=== PATIENT | female | born 1985 | race Two or more races ===

== ENCOUNTER 2017-01-14 14:42 | Emergency (ER) | payer OTHER ==
[~2017-01-14] VITALS: Ht 162.6 cm; Wt 59.5 kg
[~2017-01-14 14:42] MED LIST: ACET500C5 PO; CEPH500C PO; IBUP-1542 PO
[2017-01-14 14:48] VITALS: Ht 162.6 cm; Wt 59.5 kg
--- NOTE | 2017-01-14 16:24 | RADRPT ---
PROCEDURE: XR Lumbar Spine. CLINICAL INDICATION: Low back pain. TECHNIQUE: Two views of the lumbar spine are available for review COMPARISON: None available FINDINGS: The vertebral body heights are preserved. There are no acute fractures. There is minimal right con vex curvature of the thoracolumbar spine. There are L5 pars defects with minimal anterolisthesis at L5-S1. There is mild disk space narrowing at L4-L5. The bilateral sacroiliac joints and sacral arcuate lines are intact. RPTAT: EE IMPRESSION: 1. L5 pars defects with minimal anterolisthesis at L5-S1. 2. Mild degenerative disk disease at L4-L5. .Arleen Servin MD, Date Time Electronically viewed and signed by .Arleen Servin MD, on 01/14/2017 16:28 .T/
[2017-01-14] MEDS ORDERED: NAPR-260 PO (16:53)
--- NOTE | 2017-01-14 17:32 | ERD ---
ER Documentation Chief Complaint Date/Time DATE: 01/14/17 TIME: 17:18 Chief Complaint LOWER BACK PAIN HPI 31-year-old female patient with no significant past medical history presents to the ED complaining of lower back pain that started intermittently for 6 months. Reports that it is an achy type of pain and rates it a 5 out of 10. States that laying on her back and moving makes her pain worse. Denies any chest pain , shortness of breath, wheezing, abdominal pain, nausea, vomiting, flank pain, dysuria, hematuria. States that her last menses was sometime last week. ROS All systems reviewed and are negative except as per history of present illness. Medications Home Meds Active Scripts Naproxen* (Naprosyn*) 500 Mg Tablet, 500 MG PO BID Y for PAIN AND/OR INFLAMMATION, #30 TAB Prov:PERCY SPENCE PA-C 01/14/17 Ibuprofen* (Motrin*) 600 Mg Tab, 600 MG PO Q6, #30 TAB Prov:ANIBAL ANAYA 10/05/15 Cephalexin* (Cephalexin*) 500 Mg Capsule, 500 MG PO Q6 for 7 Days, CAP Prov:NAYLA BROWN NP 06/08/15 Acetaminophen* (Tylophen*) 500 Mg Capsule, 1 CAP PO Q6H Y for PAIN AND OR ELEVATED TEMP, #20 CAP Prov:NAYLA BROWN HEEL PAINTER 06/08/15 Reported Medications [none] Unknown Strength No Conflict Check 06/08/15 Allergies Allergies: Coded Allergies: No Known Allergy (Unverified , 06/08/15) PMhx/Soc History of Surgery: No Anesthesia Reaction: No Hx Neurological Disorder: No Hx Respiratory Disorders: No Hx Cardiac Disorders: No Hx Psychiatric Problems: No Hx Miscellaneous Medical Probl: No Hx Alcohol Use: No Hx Substance Use: No Hx Tobacco Use: No Smoking Status: Never smoker Physical Exam Vitals Vital Signs Date Time Temp Pulse Resp B/P Pulse Ox O2 Delivery O2 Flow Rate FiO2 01/14/17 14:48 98.4 59 18 105/55 99 Physical Exam Const: [id number], well-nourished. In no acute distress. Head: Atraumatic, normocephalic Eyes: Normal Conjunctiva without injection. No purulent discharge. ENT: Normal external ear, nose. Moist oropharynx without tonsillar exudates. Non -erythematous pharynx. Uvula midline. No drooling. No trismus. Neck: No cervical midline tenderness. Full range of motion. No meningismus. No cervical lymphadenopathy. No JVD. Resp: Clear to auscultation bilaterally. No wheezing, rhonchi, rales, or crackles. No accessory muscle use. No retractions. Cardio: Regular rate and rhythm. No murmurs, rubs or gallops. Abd: Soft, nontender, non distended. Normal bowel sounds. No palpable masses. No rebound tenderness. No guarding. Negative McBurney's point. Negative psoas sign. Negative obturator sign. : See exam in MDM. Skin: No petechiae or rashes Back: Tenderness to palpation of the L5 vertebrae. No CVA tenderness. Full range of motion with flexion, extension, rotational movements. Ext: No cyanosis, or edema. Neur: Awake and alert. Normal gait. Normal coordination. Psych: Normal Mood and Affect Procedures/MDM This is a 31-year-old female patient with no significant past medical history presents the ED complaining of lower back pain that started intermittently for 6 months. Patient is afebrile and nontoxic-appearing. Patient has normal vital signs. A lumbar x-ray was ordered to further evaluate patient. Urine is negative. PROCEDURE: XR Lumbar Spine. CLINICAL INDICATION: Low back pain. TECHNIQUE: Two views of the lumbar spine are available for review COMPARISON: None available FINDINGS: The vertebral body heights are preserved. There are no acute fractures. There is minimal right convex curvature of the thoracolumbar spine. There are L5 pars defects with minimal anterolisthesis at L5-S1. There is mild disk space narrowing at L4-L5. The bilateral sacroiliac joints and sacral arcuate lines are intact. RPTAT: EE IMPRESSION: 1. L5 pars defects with minimal anterolisthesis at L5-S1. 2. Mild degenerative disk disease at L4-L5. Patient has an L5 pars defect with minimal anterolisthesis at L5-S1. Patient is ambulating here in the ED without difficulty. Denies saddle anesthesia, numbness or tingling, urine or bowel incontinence, weakness. Low suspicion for cauda equina syndrome, cord compression, nephrolithiasis, aortic aneurysm, aortic dissection, epidural abscess, spinal hematoma, malignancy, pyelonephritis , or other emergent conditions. This was discussed with my supervising physician Dr. Crowell who agreed with the management and discharge plan. Discharge medications: Naproxen Follow up with primary care physician in 1-2 days for a referral to an orthopedic physician. Instructed patient to return to the ED sooner for any worsening symptoms. Patient's questions were answered. Patient understood and agreed with discharge plan. Patient discharged stable. Departure Diagnosis: Primary Impression: Back pain Back pain location: back pain in unspecified location Chronicity: unspecified Back pain laterality: unspecified Qualified Code: M54.9 - Back pain, unspecified back location, unspecified back pain laterality, unspecified chronicity Condition: Stable Patient Instructions: Back Pain (Acute Or Chronic) Referrals: MARIE CALDWELL (PCP) [facility] YOU HAVE RECEIVED A MEDICAL SCREENING EXAM AND THE RESULTS INDICATE THAT YOU DO NOT HAVE A CONDITION THAT REQUIRES URGENT TREATMENT IN THE EMERGENCY DEPARTMENT. FURTHER EVALUATION AND TREATMENT OF YOUR CONDITION CAN WAIT UNTIL YOU ARE SEEN IN YOUR DOCTORS OFFICE WITHIN THE NEXT 1-2 DAYS. IT IS YOUR RESPONSIBILITY TO MAKE AN APPOINTMENT FOR [facility]- CARE. IF YOU HAVE A PRIMARY DOCTOR --you should call your primary doctor and schedule an appointment IF YOU DO NOT HAVE A PRIMARY DOCTOR YOU CAN CALL OUR PHYSICIAN REFERRAL HOTLINE AT IF YOU CAN NOT AFFORD TO SEE A PHYSICIAN YOU CAN CHOSE FROM THE FOLLOWING [facility] [address] [facility]. [facility] [address] [facility] [facility] [address] [facility]. [facility] [address] [facility]. [facility] [address] [facility]. [facility]. [address] [facility] YOU HAVE RECEIVED A MEDICAL SCREENING EXAM AND THE RESULTS INDICATE THAT YOU DO NOT HAVE A CONDITION THAT REQUIRES URGENT TREATMENT IN THE EMERGENCY DEPARTMENT. FURTHER EVALUATION AND TREATMENT OF YOUR CONDITION CAN WAIT UNTIL YOU ARE SEEN IN YOUR DOCTORS OFFICE WITHIN THE NEXT 1-2 DAYS. IT IS YOUR RESPONSIBILITY TO MAKE AN APPOINTMENT FOR FOLOW-UP CARE. IF YOU HAVE A PRIMARY DOCTOR --you should call your primary doctor and schedule and appointment IF YOU DO NOT HAVE A PRIMARY DOCTOR YOU CAN CALL OUR PHYSICIAN REFERRAL HOTLINE AT . IF YOU CAN NOT AFFORD TO SEE A PHYSICIAN YOU CAN CHOSE FROM THE FOLLOWING [facility] INSTITUTIONS: [facility] [address] [place] [address] [facility] [address] [place] [address] [facility] [address] [place] [address] [facility] Urgent Care 7 a.m.- 11 p.m. Every Day of the Week NO APPOINTMENT OR AUTHORIZATION NEEDED SO [facility] Hours: Mon-Fri 9:00 AM - 5:00 PM Additional Instructions: FOLLOW UP WITH YOUR PRIMARY CARE PHYSICIAN TOMORROW for a referral to an orthopedic physician for further evaluation and treatment.Return to this facility if you are not improving as expected - numbness and tingling in groin, if you cannot hold your urine or bowels, if you cannot urinate, weakness PERCY SPENCE PA-C Jan 14, 2017 17:28
== END 2017-01-14 17:21 | disposition home or self-care (01) ==
LOC: FTE 14:42
DX: M54.5 Low back pain (principal)
CPT/HCPCS: 72100; Z7502

== ENCOUNTER 2017-05-06 14:49 | Emergency (ER) | payer OTHER ==
[~2017-05-06] VITALS: Ht 154.9 cm; Wt 57.5 kg
[~2017-05-06 14:49] MED LIST changes: +NAPR-260 PO
[2017-05-06 14:51] VITALS: Ht 154.9 cm; Wt 57.5 kg
--- NOTE | 2017-05-06 15:41 | RADRPT ---
AMENDMENT: 05/06/2017 3:45:16 PM Jose Ly M.d There is appearance of soft tissue density projected over the superior left maxillary sinus. Herniat ion of left orbital fat into the superior left maxillary sinus secondary to a left inferior orbital blowout fracture is not excluded on this study. Discussed with physician miller head assistant wet process Elke at 03:4 2 p.m. on 05/06/2017. PROCEDURE: XR nasal bones. CLINICAL INDICATION: Trauma, pain TECHNIQUE: Three views were performed. COMPARISON: No prior studies are available for comparison. FINDINGS: No definite acute fracture is seen. No dislocation is seen. The bone mineralization is normal. No definite soft tissue swelling is seen. IMPRESSION: No definite acute fracture or dislocation seen. RPTAT: HJES .Jose Ly MD, Date Time Electronically viewed and signed by .Jose Ly MD, on 05/06/2017 15:45 .S/
--- NOTE | 2017-05-06 15:41 | RADRPT ---
AMENDMENT: 05/06/2017 3:45:16 PM Jose Ly M.d There is appearance of soft tissue density projected over the superior left maxillary sinus. Herniat ion of left orbital fat into the superior left maxillary sinus secondary to a left inferior orbital blowout fracture is not excluded on this study. Discussed with physician judicial assistant Elke at 03:4 2 p.m. on 05/06/2017. PROCEDURE: XR nasal bones. CLINICAL INDICATION: Trauma, pain TECHNIQUE: Three views were performed. COMPARISON: No prior studies are available for comparison. FINDINGS: No definite acute fracture is seen. No dislocation is seen. The bone mineralization is normal. No definite soft tissue swelling is seen. IMPRESSION: No definite acute fracture or dislocation seen. RPTAT: HJES .Jose Ly MD, Date Time Electronically viewed and signed by .Jose Ly MD, on 05/06/2017 15:45 .S/
--- NOTE | 2017-05-06 15:41 | RADRPT ---
AMENDMENT: 05/06/2017 3:45:16 PM Jose Ly M.d There is appearance of soft tissue density projected over the superior left maxillary sinus. Herniat ion of left orbital fat into the superior left maxillary sinus secondary to a left inferior orbital blowout fracture is not excluded on this study. Discussed with physician teaching assistant Elke at 03:4 2 p.m. on 05/06/2017. PROCEDURE: XR nasal bones. CLINICAL INDICATION: Trauma, pain TECHNIQUE: Three views were performed. COMPARISON: No prior studies are available for comparison. FINDINGS: No definite acute fracture is seen. No dislocation is seen. The bone mineralization is normal. No definite soft tissue swelling is seen. IMPRESSION: No definite acute fracture or dislocation seen. RPTAT: HJES .Jose Ly MD, Date Time Electronically viewed and signed by .Jose Ly MD, on 05/06/2017 15:45 .S/
--- NOTE | 2017-05-06 15:49 | ERD ---
ER Documentation Chief Complaint Chief Complaint nose pain s/p fall yesterday , no k/o HPI 31-year-old female presents with a chief complaints of fall with impact to nose 24 hours ago. Denies any medical condition. States that the fall was from a trip and nose hit wooden step. Denies any loss of consciousness, injury to other areas, change in vision, vomiting or fever or chills. Describes associated mild headache that is bilateral and relieved with ibuprofen. Patient has no other complaints and describes no other associated manifestations. Nursing notes have been reviewed and are consistent with history given. ROS All systems reviewed and are negative except as per history of present illness. Medications Home Meds Active Scripts Naproxen* (Naprosyn*) 500 Mg Tablet, 500 MG PO BID Y for PAIN AND/OR INFLAMMATION, #30 TAB Prov:PERCY SPENCE PA-C 01/14/17 Ibuprofen* (Motrin*) 600 Mg Tab, 600 MG PO Q6, #30 TAB Prov:ANIBAL ANAYA 10/05/15 Cephalexin* (Cephalexin*) 500 Mg Capsule, 500 MG PO Q6 for 7 Days, CAP Prov:NAYLA BROWN NP 06/08/15 Acetaminophen* (Tylophen*) 500 Mg Capsule, 1 CAP PO Q6H Y for PAIN AND OR ELEVATED TEMP, #20 CAP Prov:NAYLA BROWN SUPERVISOR COMPRESSED YEAST 06/08/15 Reported Medications [none] Unknown Strength No Conflict Check 06/08/15 Allergies Allergies: Coded Allergies: No Known Allergy (Unverified , 06/08/15) PMhx/Soc History of Surgery: No Anesthesia Reaction: No Hx Neurological Disorder: No Hx Respiratory Disorders: No Hx Cardiac Disorders: No Hx Psychiatric Problems: No Hx Miscellaneous Medical Probl: No Hx Alcohol Use: No Hx Substance Use: No Hx Tobacco Use: No Physical Exam Vitals Vital Signs Date Time Temp Pulse Resp B/P Pulse Ox O2 Delivery O2 Flow Rate FiO2 05/06/17 14:51 98.5 74 16 102/64 98 Physical Exam Const: [] Head: Atraumatic Eyes: Normal Conjunctiva ENT: Normal External Ears, Nose and Mouth. Neck: Full range of motion..~ No meningismus. Resp: Clear to auscultation bilaterally Cardio: Regular rate and rhythm, no murmurs Abd: Soft, non tender, non distended. Normal bowel sounds Skin: No petechiae or rashes Back: No midline or flank tenderness Ext: No cyanosis, or edema Neur: Awake and alert Psych: Normal Mood and Affect Procedures/MDM Well-appearing 31-year-old female presenting with the chief complaints of nose pain 24 hours status post mechanical fall. Denies injury to other areas. X- ray of the nasal bones was obtained, read by the radiologist and given the following impression:No definite acute fracture or dislocation seen. I have no suspicion for blowout fracture, intracranial pathology, or neurovascular compromise. Most likely diagnosis is hematoma after trauma. I have spoke with the patient regarding their condition and future management. X- ray results were given to the patient. They have verbally responded that they understand their status and treatment plan. The patients vitals are stable, and their current condition is appropriate for discharge. The patient will be given discharge instructions with return precautions. Departure Diagnosis: Primary Impression: Nasal contusion Encounter type: initial encounter Qualified Code: S00.33XA - Contusion of nose, initial encounter Condition: Stable Additional Instructions: Follow up with your PCP within the next 1-3 days for a more thorough evaluation and a possible referral to a specialist. Return the the emergency department immediately if symptoms worsen or change. If you have any questions regarding medications, ask your pharmacist or us before you leave. If any adverse reactions occur while taking your medications, discontinue the treatment and return to the emergency department immediately. Take your medications as directed, and complete the entire course of treatment. ROMAINE SULLIVAN PA-C May 06, 2017 15:49
== END 2017-05-06 16:22 | disposition home or self-care (01) ==
LOC: FTE 14:49
DX: S00.33XA Contusion of nose, initial encounter (principal); W01.198A Fall on same level from slipping, tripping and stumbling with subsequent striking against other object, initial encounter; Y92.9 Unspecified place or not applicable
CPT/HCPCS: 70160; Z7502

== ENCOUNTER 2018-09-22 15:46 | Emergency (ER) | payer OTHER ==
[~2018-09-22] VITALS: Wt 58.0 kg
[~2018-09-22 15:46] MED LIST changes: -NAPR-260 PO; +NAPR-985 PO
--- NOTE | 2018-09-22 19:30 | ERD ---
ER Documentation Chief Complaint Chief Complaint here for low back pain and possible . HPI Patient is a 33-year-old female with no medical problems who presents with possible . The patient said that her last menstrual period was around August 16. She took a home test because she did not have her period yet this month. It was positive today. She denies pain. She is a . Upon review of old medical records this is the patient's fifth visit to the ER since 2014. She says that her OB doctor previously for her [address] Espinoza. ROS All systems reviewed and are negative except as per history of present illness. Medications Home Meds Discontinued Reported Medications [none] Unknown Strength No Conflict Check 06/08/15 Discontinued Scripts Naproxen* (Naprosyn*) 500 Mg Tablet, 500 MG PO BID PRN for PAIN AND/OR INFLAMMATION, #30 TAB Prov:PERCY SPENCE PA-C 01/14/17 Ibuprofen* (Motrin*) 600 Mg Tab, 600 MG PO Q6, #30 TAB Prov:ANIBAL ANAYA 10/05/15 Cephalexin* (Cephalexin*) 500 Mg Capsule, 500 MG PO Q6 for 7 Days, CAP Prov:NAYLA BROWN FREIGHT BOOKER 06/08/15 Acetaminophen* (Tylophen*) 500 Mg Capsule, 1 CAP PO Q6H PRN for PAIN AND OR ELEVATED TEMP, #20 CAP Prov:NAYLA BROWN FREIGHT BOOKER 06/08/15 Allergies Allergies: Coded Allergies: No Known Allergy (Unverified , 09/22/18) PMhx/Soc Medical and Surgical Hx: pt denies Medical Hx History of Surgery: No Anesthesia Reaction: No Hx Neurological Disorder: No Hx Respiratory Disorders: No Hx Cardiac Disorders: No Hx Psychiatric Problems: No Hx Miscellaneous Medical Probl: No Hx Alcohol Use: No Hx Substance Use: No Hx Tobacco Use: No FmHx Family History: No diabetes Physical Exam Vitals Vital Signs Date Temp Pulse Resp B/P (MAP) Pulse Ox O2 O2 Flow FiO2 Time Delivery Rate 09/22/18 98.0 59 18 103/49 99 15:51 (67) Physical Exam Const: No acute distress Head: Atraumatic Eyes: Normal Conjunctiva ENT: Normal External Ears, Nose and Mouth. Neck: Full range of motion. No meningismus. Resp: Clear to auscultation bilaterally Cardio: Regular rate and rhythm, no murmurs Abd: Soft, non tender, non distended. Normal bowel sounds Skin: No petechiae or rashes Back: No midline or flank tenderness Ext: No cyanosis, or edema Neur: Awake and alert Psych: Normal Mood and Affect Result Diagram: 09/22/18 1758 Results 24 hrs Laboratory Tests Test 09/22/18 17:58 White Blood Count 6.4 10^3/ul Red Blood Count 4.17 10^6/ul Hemoglobin 13.7 g/dl Hematocrit 40.4 % Mean Corpuscular Volume 96.9 fl Mean Corpuscular Hemoglobin 32.9 pg Mean Corpuscular Hemoglobin Concent 33.9 g/dl Red Cell Distribution Width 11.8 % Platelet Count 230 10^3/UL Mean Platelet Volume 10.6 fl Immature Granulocytes % 0.300 % Neutrophils % 74.3 % Lymphocytes % 19.9 % Monocytes % 4.5 % Eosinophils % 0.5 % Basophils % 0.5 % Nucleated Red Blood Cells % 0.0 /100WBC Immature Granulocytes # 0.020 10^3/ul Neutrophils # 4.7 10^3/ul Lymphocytes # 1.3 10^3/ul Monocytes # 0.3 10^3/ul Eosinophils # 0.0 10^3/ul Basophils # 0.0 10^3/ul Nucleated Red Blood Cells # 0.0 10^3/ul Urine Color STRAW Urine Clarity SLIGHTLY CLOUDY Urine pH 7.0 Urine Specific [place] 1.003 Urine Ketones NEGATIVE mg/dL Urine Nitrite NEGATIVE mg/dL Urine Bilirubin NEGATIVE mg/dL Urine Urobilinogen NEGATIVE mg/dL Urine Leukocyte Esterase NEGATIVE William/ul Urine Microscopic RBC 1 /HPF Urine Microscopic WBC 2 /HPF Urine Squamous Epithelial Cells FEW /HPF Urine Bacteria FEW /HPF Urine Hemoglobin NEGATIVE mg/dL Urine Glucose NEGATIVE mg/dL Urine Total Protein NEGATIVE mg/dl Beta HCG, Quantitative 52762.0 mIU/ml Procedures/MDM PROCEDURE: US OB. CLINICAL INDICATION: Vaginal bleeding TECHNIQUE: Transabdominal pelvic ultrasound are performed. COMPARISON: None. FINDINGS: There is a limited transabdominal only study. The patient refused transvaginal study. The uterus is normal in echogenicity and anteverted in orientation. The uterus measures 8.4 x 5.1 x 7.0 cm.. No focal fibroids are identified. Within the lower portion of the endometrium and gestational sac is identified with double decidual reaction. There is a probable yolk sac. No pole is identified. The crown-rump length measures 8.7 mm corresponding to a gestational 5 weeks 3 days. No cardiac activity is detected. There is probable subchorionic hemorrhage. The cervix is normal in appearance. Both ovaries are identified . No complex adnexal masses are seen.. Doppler flow cannot be obtained transabdominally. The right ovary measures 3.8 x 2.3 x 2.5 cm, and the left ovary measures 2.4 x 1.4 x 1.7 cm Trace free fluid is seen IMPRESSION: 1. Limited transabdominal study. 2. A gestational sac is identified but is located low in the endometrium. Continued follow-up is recommended.. 3. Estimated age of the gestation is 5 weeks 3 days. There is a questionable yolk sac. No pole or heart beat is detected at this point 4. Probable subchorionic hemorrhage. 5. No obvious adnexal masses RPTAT: HH .Juan Ji MD, MD Date Time Electronically viewed and signed by .Juan Ji MD, MD on 09/22/2018 19:21 Patient is a 33-year-old female who presents with new . Quantitative hCG confirmed with a quant of 15,000. Ultrasound showed a gestational sac low in the endometrium and estimated gestational age of 5 weeks 3 days. This is a fairly recent given that the last mental period was August 16. The patient will need close follow-up with her OB doctor Dr. Espinoza but she said that this is an unwanted and that she will likely seek an . I doubt ectopic at this time. She is not bleeding and she is Rh+. The patient should follow-up with her OB doctor within 24-48 hours. She can return for any worsening symptoms. Departure Diagnosis: Primary Impression: Weeks of gestation: less than 8 weeks Qualified Codes: Z3A.01 - Less than 8 weeks gestation of Condition: Fair Patient Instructions: , New Dx Referrals: Your OB doctor Dr. Espinoza Additional Instructions: SPECIALIST: YOU HAVE A MEDICAL CONDITION WHICH REQUIRES YOU TO SEE A SPECIAL IST WITHIN THE NEXT 1-2 DAYS. PLEASE FOLLOW UP WITH YOUR PRIMARY PHYSICIAN FOR REFFERAL.IF YOU DO NOT HAVE A PRIMARY CARE PHYSICIAN AND/OR YOU CAN NOT AFFORD TO SEE A PHYSICIAN THE FOLLOWING RESOURCES HAVE BEEN SUPPLIED TO YOU. IT IS YOUR RESPONSIBILITY TO BE SEEN BY THE SPECIALIST GRACIELA RAMIREZ MD Sep 22, 2018 19:30
[2018-09-22 20:02] VITALS: BP 110/58; PULSE 62; RESP 19
== END 2018-09-22 20:15 | disposition home or self-care (01) ==
LOC: E/R 15:46
DX: O99.89 Other specified diseases and conditions complicating pregnancy, childbirth and the puerperium (principal); M54.5 Low back pain; Z3A.01 Less than 8 weeks gestation of pregnancy
CPT/HCPCS: 36415; 76801; 81001; 81003; 84702; 85025; 86900; 86901

== ENCOUNTER 2018-09-26 18:35 | Inpatient (IN) | payer OTHER ==
[~2018-09-26] VITALS: Ht 162.6 cm; Wt 58.2 kg
[2018-09-26] VITALS (9 sets, daily range): BP systolic 81–97; BP diastolic 34–48; PULSE 92–99; RESP 15–18
[2018-09-26] MEDS ORDERED: SODIUM CHLORIDE 0.9% 1L BAG IV* STA (19:17)
[2018-09-26] MEDS ORDERED: CEFTRIAXONE 1 GM/50 ML (PMX) 50 ML IVPB STA (19:17)
[2018-09-26] MEDS ORDERED: ACETAMINOPHEN 325 MG TAB PO ONE (19:30)
--- NOTE | 2018-09-26 21:21 | HP ---
Date/Time of Note Date/Time of Note DATE: 09/26/18 TIME: 21:21 Assessment/Plan VTE Prophylaxis SCD applied (from Nsg): Yes Pharmacological prophylaxis: NA/contraindicated Pharm contraindication: other (Patient awaiting D&C) Lines/Catheters IV Catheter Type (from Nrsg): Saline Lock Assessment/Plan Assessment/Plan 33-year-old female with a spontaneous miscarriage 3 days ago here with abdominal pain and found to be septic as evidenced by fever and tachycardia, secondary to retained products of conception, UTI PLAN -IV antibiotic -IV fluid -ENTRY LEVEL MANAGER consult for D&C -Follow-up culture results Result Diagram: 09/26/18193209/26/181932 Results 24hrs Laboratory Tests Test 09/26/18 19:33 09/26/18 19:45 White Blood Count 5.4 Red Blood Count 3.75 L Hemoglobin 12.1 Hematocrit 35.8 L Mean Corpuscular Volume 95.5 Mean Corpuscular Hemoglobin 32.3 Mean Corpuscular Hemoglobin Concent 33.8 Red Cell Distribution Width 11.8 Platelet Count 172 # Mean Platelet Volume 10.7 H Immature Granulocytes % 0.400 Neutrophils % 88.6 H Lymphocytes % 6.5 L Monocytes % 4.1 Eosinophils % 0.0 Basophils % 0.4 Nucleated Red Blood Cells % 0.0 Immature Granulocytes # 0.020 Neutrophils # 4.8 Lymphocytes # 0.4 L Monocytes # 0.2 L Eosinophils # 0.0 Basophils # 0.0 Nucleated Red Blood Cells # 0.0 Prothrombin Time 13.0 Prothrombin Time Ratio 1.0 INR International Normalized Ratio 0.97 Activated Partial Thromboplast Time 28.5 Sodium Level 139 Potassium Level 3.6 Chloride Level 104 Carbon Dioxide Level 23 Anion Gap 12 Blood Urea Nitrogen 6 L Creatinine 0.53 Est Glomerular Filtrat Rate mL/min > 60 Glucose Level 114 Lactic Acid Level 1.4 Calcium Level 9.6 Total Bilirubin 0.6 Direct Bilirubin 0.00 Indirect Bilirubin 0.6 Aspartate Amino Transf (AST/SGOT) 19 Alanine Aminotransferase (ALT/SGPT) 19 Alkaline Phosphatase 52 Troponin I < 0.012 Total Protein 7.5 Albumin 4.4 Globulin 3.10 Albumin/Globulin Ratio 1.41 Urine Color YELLOW Urine Clarity CLOUDY A Urine pH 8.0 Urine Specific [place] 1.018 Urine Ketones TRACE A Urine Nitrite NEGATIVE Urine Bilirubin NEGATIVE Urine Urobilinogen 2+ H Urine Leukocyte Esterase TRACE A Urine Microscopic RBC > 182 H Urine Microscopic WBC 27 H Urine Squamous Epithelial Cells FEW Urine Mucus FEW A Urine Hemoglobin 3+ H Urine Glucose NEGATIVE Urine Total Protein NEGATIVE HPI/ROS Admit Date/Time Admit Date/Time Hx of Present Illness This is a 33-year-old female who presents the ER complaining of abdominal pain. She had a spontaneous miscarriage for 3 days ago. She also reported subjective fever. When she presented to the ER imaging shows retained products of conception. Initial temp 102.2, heart rate 113. WBC WNL. PMH/Family/Social Past Medical History Medical History: other (See HPI) Medications Current Medications Ondansetron HCl (Zofran Inj) 4 mg BRIDGE ORDER PRN IV NAUSEA/VOMITING; Start 09/26/18 at 21:30; Stop 09/27/18 at 21:29 Acetaminophen (Tylenol Tab) 650 mg ER BRIDGE PRN PO .MILD PAIN 1-3 OR TEMP; Start 09/26/18 at 21:30; Stop 09/27/18 at 21:29 Dextrose/Sodium Chloride 1,000 ml @ 120 mls/hr Q8H20M IV ; Start 09/26/18 at 21:08; Status UNV IV Flush (NS 3 ml) 3 ml PER PROTOCOL IV ; Start 09/26/18 at 21:30; Status UNV Ondansetron HCl (Zofran Inj) 4 mg Q6H PRN IV NAUSEA/VOMITING; Start 09/26/18 at 21:30; Status UNV Acetaminophen (Tylenol Tab) 650 mg Q6H PRN PO .PAIN 1-3 OR TEMP; Start 09/26/18 at 21:30; Status UNV Acetaminophen/ Hydrocodone Bitart ([place] (5/325)) 1 tab Q6H PRN PO .MOD PAIN 4- 6; Start 09/26/18 at 21:30; Status UNV Vancomycin HCl (Vanco Iv Per Pharmacy) VANCOMYCIN PER PHARMACY PER PROTOCOL XX ; Start 09/26/18 at 21:30; Status UNV Ceftriaxone Sodium 50 ml @ 100 mls/hr DAILY IVPB ; Start 09/27/18 at 09:00; Status UNV Coded Allergies: No Known Allergy (Unverified , 09/22/18) Past Surgical History Past Surgical Hx: other (See HPI) Family History Significant Family History: no pertinent family hx Social History Alcohol Use: none Smoking Status: Never smoker Drug Use: none Exam/Review of Systems Vital Signs Vitals Vital Signs Date Temp Pulse Resp B/P (MAP) Pulse Ox O2 O2 Flow FiO2 Time Delivery Rate 09/26/18 99.3 103 18 111/55 100 Room Air 20:45 (73) Exam Constitutional: alert, oriented, well developed Eyes: EOMI, PERRL Respiratory: clear to auscultation, normal air movement Cardiovascular: other (Tachycardic regular rhythm) Gastrointestinal: soft, tender Extremities: normal pulses WAYNE GUTIERREZ MD Sep 26, 2018 21:21
[2018-09-26] MEDS ORDERED: HYDROCODONE/APAP (5/325) TAB PO PRN (21:30)
[2018-09-26] MEDS ORDERED: ONDANSETRON 4 MG INJ IV PRN ×3 (21:30→22:30)
[2018-09-26] MEDS ORDERED: VANCOMYCIN IV PER PHARMACY XX SCH (21:30)
[2018-09-26] MEDS ORDERED: NACL 0.9% 3 ML SYG IV SCH (21:30)
[2018-09-26] MEDS ORDERED: ACETAMINOPHEN 325 MG TAB PO PRN ×2 (21:30)
--- NOTE | 2018-09-26 22:02 | ERD ---
ER Documentation Chief Complaint Chief Complaint fever/abd pain/body ache/vag bleed, states spont ab 3 days ago HPI Patient is a 33-year-old female with no medical problems who presents with fever. She had a miscarriage 3 days ago. She has pelvic pain and bleeding. She tried ibuprofen. Upon review of old medical records this is the patient's sixth visit to the ER since 2014. She does not of the name of her primary doctor or her OB doctor. ROS All systems reviewed and are negative except as per history of present illness. Medications Home Meds Discontinued Reported Medications [none] Unknown Strength No Conflict Check 06/08/15 Discontinued Scripts Naproxen* (Naprosyn*) 500 Mg Tablet, 500 MG PO BID PRN for PAIN AND/OR INFLAMMATION, #30 TAB Prov:PERCY SPENCE PA-C 01/14/17 Ibuprofen* (Motrin*) 600 Mg Tab, 600 MG PO Q6, #30 TAB Prov:ANIBAL ANAYA 10/05/15 Cephalexin* (Cephalexin*) 500 Mg Capsule, 500 MG PO Q6 for 7 Days, CAP Prov:NAYLA BROWN NP 06/08/15 Acetaminophen* (Tylophen*) 500 Mg Capsule, 1 CAP PO Q6H PRN for PAIN AND OR ELEVATED TEMP, #20 CAP Prov:NAYLA BROWN NP 06/08/15 Allergies Allergies: Coded Allergies: No Known Allergy (Unverified , 09/22/18) PMhx/Soc Medical and Surgical Hx: pt denies Medical Hx History of Surgery: No Anesthesia Reaction: No Hx Neurological Disorder: No Hx Respiratory Disorders: No Hx Cardiac Disorders: No Hx Psychiatric Problems: No Hx Miscellaneous Medical Probl: No Hx Alcohol Use: No Hx Substance Use: No Hx Tobacco Use: No Smoking Status: Never smoker FmHx Family History: No diabetes Physical Exam Vitals Vital Signs Date Temp Pulse Resp B/P (MAP) Pulse Ox O2 O2 Flow FiO2 Time Delivery Rate 09/26/18 99.3 103 18 111/55 100 Room Air 20:45 (73) 09/26/18 Nasal 19:41 Cannula 09/26/18 102.2 113 20 107/53 98 19:11 (71) Physical Exam Const: No acute distress Head: Atraumatic Eyes: Normal Conjunctiva ENT: Normal External Ears, Nose and Mouth. Neck: Full range of motion. No meningismus. Resp: Clear to auscultation bilaterally Cardio: Tachycardic rate without murmur Abd: Soft, non tender, non distended. Normal bowel sounds Skin: Pale skin Back: No midline or flank tenderness Ext: No cyanosis, or edema Neur: Awake and alert Psych: Normal Mood and Affect Result Diagram: 09/26/18193209/26/181932 Results 24 hrs Laboratory Tests Test 09/26/18 19:33 09/26/18 19:45 09/26/18 21:07 White Blood Count 5.4 10^3/ul Red Blood Count 3.75 10^6/ul Hemoglobin 12.1 g/dl Hematocrit 35.8 % Mean Corpuscular Volume 95.5 fl Mean Corpuscular Hemoglobin 32.3 pg Mean Corpuscular 33.8 g/dl Hemoglobin Concent Red Cell Distribution Width 11.8 % Platelet Count 172 10^3/UL Mean Platelet Volume 10.7 fl Immature Granulocytes % 0.400 % Neutrophils % 88.6 % Lymphocytes % 6.5 % Monocytes % 4.1 % Eosinophils % 0.0 % Basophils % 0.4 % Nucleated Red Blood Cells % 0.0 /100WBC Immature Granulocytes # 0.020 10^3/ul Neutrophils # 4.8 10^3/ul Lymphocytes # 0.4 10^3/ul Monocytes # 0.2 10^3/ul Eosinophils # 0.0 10^3/ul Basophils # 0.0 10^3/ul Nucleated Red Blood Cells # 0.0 10^3/ul Prothrombin Time 13.0 Sec Prothrombin Time Ratio 1.0 INR International 0.97 Normalized Ratio Activated Partial Thromboplast 28.5 Sec Time Sodium Level 139 mmol/L Potassium Level 3.6 mmol/L Chloride Level 104 mmol/L Carbon Dioxide Level 23 mmol/L Anion Gap 12 Blood Urea Nitrogen 6 mg/dl Creatinine 0.53 mg/dl Est Glomerular Filtrat > 60 mL/min Rate mL/min Glucose Level 114 mg/dl Lactic Acid Level 1.4 mmol/L 0.9 mmol/L Calcium Level 9.6 mg/dl Total Bilirubin 0.6 mg/dl Direct Bilirubin 0.00 mg/dl Indirect Bilirubin 0.6 mg/dl Aspartate Amino 19 IU/L Transf (AST/SGOT) Alanine 19 IU/L Aminotransferase (ALT/SGPT) Alkaline Phosphatase 52 IU/L Troponin I < 0.012 ng/ml Total Protein 7.5 g/dl Albumin 4.4 g/dl Globulin 3.10 g/dl Albumin/Globulin Ratio 1.41 Urine Color YELLOW Urine Clarity CLOUDY Urine pH 8.0 Urine Specific [place] 1.018 Urine Ketones TRACE mg/dL Urine Nitrite NEGATIVE mg/dL Urine Bilirubin NEGATIVE mg/dL Urine Urobilinogen 2+ mg/dL Urine Leukocyte Esterase TRACE William/ul Urine Microscopic RBC > 182 /HPF Urine Microscopic WBC 27 /HPF Urine Squamous Epithelial Cells FEW /HPF Urine Mucus FEW /HPF Urine Hemoglobin 3+ mg/dL Urine Glucose NEGATIVE mg/dL Urine Total Protein NEGATIVE mg/dl Current Medications Medications Dose Sig/[place] Start Time Status Last (Trade) Ordered Route PRN Stop Time Admin Dose Reason Admin Sodium 1,750 ml BOLUS OVER 2 09/26/18 DC 09/26/18 Chloride HOURS STAT 19:17 19:41 (NS) IV* 09/26/18 19:19 Ceftriaxone 50 ml @ ONCE STAT 09/26/18 DC 09/26/18 Sodium 100 mls/hr IVPB 19:17 19:40 09/26/18 19:46 650 mg ONCE ONCE 09/26/18 DC 09/26/18 Acetaminophen PO 19:30 19:41 (Tylenol 09/26/18 19:31 Tab) Ondansetron 4 mg BRIDGE ORDER 09/26/18 HCl (Zofran PRN IV 21:30 Inj) NAUSEA/VOMITI 09/27/18 21:29 NG 650 mg ER BRIDGE 09/26/18 Acetaminophen PRN PO 21:30 (Tylenol .MILD PAIN 09/27/18 21:29 Tab) 1-3 OR TEMP 1,000 ml @ Q8H20M IV 09/26/18 UNV Dextrose/Sodi 120 mls/hr 21:08 um Chloride IV Flush 3 ml PER 09/26/18 UNV (NS 3 ml) PROTOCOL IV 21:30 Ondansetron 4 mg Q6H PRN 09/26/18 UNV HCl (Zofran IV 21:30 Inj) NAUSEA/VOMITI NG 650 mg Q6H PRN 09/26/18 UNV Acetaminophen PO .PAIN 1-3 21:30 (Tylenol OR TEMP Tab) 1 tab Q6H PRN 3/28/19 UNV Acetaminophen PO .MOD PAIN 21:30 / 4-6 Hydrocodone Bitart ([place] (5/325)) Vancomycin VANCOMYCIN PER 09/26/18 UNV HCl (Vanco PER PHARMACY PROTOCOL XX 21:30 Iv Per Pharmacy) Ceftriaxone 50 ml @ DAILY IVPB 09/27/18 UNV Sodium 100 mls/hr 09:00 Procedures/MDM Ultrasound of the pelvis shows retained products per radiology. Chest x-ray read by radiology. EKG read by me: Rate/Rhythm: Regular rate and rhythm at a normal rate Intervals: Normal Impression: No evidence of ischemia or arrhythmia Sepsis Documentation: Patient's infectious symptoms have not stabilized and the patient is at risk of rapid decompensation. The patient will be admitted for careful hydration, antibiotic therapy, and infectious source control. SEVERE SEPSIS CRITERIA: Infectious source: Endometritis End organ damage indicated by: No endorgan damage at this time SEPSIS MANAGEMENT Time of recognition of sepsis: 1932. Time of recognition of severe sepsis: No severe sepsis at this time. Time of recognition of septic shock: No septic shock at this time. 3 HOUR BUNDLE Blood cultures x 2 before broad-spectrum antibiotics: Yes 30 ml/kg NS bolus completed Initial lactate 1.4 Repeat lactate 0.9 SEPTIC SHOCK ASSESSMENT: No lactic acid > 4.0 No persistent hypotension (SBP < 90 or 40 mmHg drop, MAP < 65) despite 30 mL/kg IV fluid bolus VOLUME REASSESSMENT FOR SEPTIC SHOCK: No septic shock at this time PERSISTENT HYPOTENSION TREATMENT: Comfort care no Central line not Required Vasopressor started not required I considered further perfusion assessment with CVP measurement, SCVO2, bedside ultrasound volume assessment, passive leg raise, trial of further fluid bolus. And proceeded with 30 ml/kg fluid bolus of NSS, broad spectrum antibiotics, and admission. I spoke with Dr. Boyce from OB who will see the patient for D&C. Dr. Majano from the panel team will admit the patient to a medical surgical bed. CRITICAL CARE Critical care time 35 minutes Emergent fluid management while maintaining close respiratory support. Provision of immediate and broad-spectrum antibiotic therapy. Simultaneous assessment for possible sources in order to direct targeted therapy. Consideration for invasive and chemical support to prevent cardiopulmonary collapse. Critical care time is independent of procedures performed. Departure Diagnosis: Primary Impression: Sepsis Sepsis type: sepsis due to unspecified organism Qualified Codes: A41.9 - Sepsis, unspecified organism Additional Impressions: Fever Fever type: unspecified Qualified Codes: R50.9 - Fever, unspecified Endometritis Condition: GRACIELA Diego MD Sep 26, 2018 22:02
--- NOTE | 2018-09-26 22:22 | PREAC ---
Date/Time of Note Date/Time of Note DATE: 09/26/18 TIME: 22:21 Anesthesia Eval and Record Evaluation Time Pre-Procedure Interview DATE: 09/26/18 TIME: 22:21 Age 33 Sex female NPO: 8 hrs Preoperative diagnosis D@C Planned procedure vaginal bleeding miscarriage Past Medical History Past Medical History: None Surgery & Anesthesia Issues No known issue Meds Anticoagulation: No Beta Isidro within 24 hr: No Reason Beta Isidro not given: Pt. not on B-Isidro Discontinued Reported Medications [none] Unknown Strength No Conflict Check 06/08/15 Discontinued Scripts Naproxen* (Naprosyn*) 500 Mg Tablet, 500 MG PO BID PRN for PAIN AND/OR INFLAMMATION, #30 TAB Prov:PERCY SPENCE PA-C 01/14/17 Ibuprofen* (Motrin*) 600 Mg Tab, 600 MG PO Q6, #30 TAB Prov:ANIBAL ANAYA 10/05/15 Cephalexin* (Cephalexin*) 500 Mg Capsule, 500 MG PO Q6 for 7 Days, CAP Prov:NAYLA BROWN NP 06/08/15 Acetaminophen* (Tylophen*) 500 Mg Capsule, 1 CAP PO Q6H PRN for PAIN AND OR ELEVATED TEMP, #20 CAP Prov:NAYLA BROWN NP 06/08/15 Current Medications Ondansetron HCl (Zofran Inj) 4 mg BRIDGE ORDER PRN IV NAUSEA/VOMITING; Start 09/26/18 at 21:30; Stop 09/27/18 at 21:29 Acetaminophen (Tylenol Tab) 650 mg ER BRIDGE PRN PO .MILD PAIN 1-3 OR TEMP; Start 09/26/18 at 21:30; Stop 09/27/18 at 21:29 Dextrose/Sodium Chloride 1,000 ml @ 120 mls/hr Q8H20M IV ; Start 09/26/18 at 21:08; Status UNV IV Flush (NS 3 ml) 3 ml PER PROTOCOL IV ; Start 09/26/18 at 21:30; Status UNV Ondansetron HCl (Zofran Inj) 4 mg Q6H PRN IV NAUSEA/VOMITING; Start 09/26/18 at 21:30; Status UNV Acetaminophen (Tylenol Tab) 650 mg Q6H PRN PO .PAIN 1-3 OR TEMP; Start 09/26/18 at 21:30; Status UNV Acetaminophen/ Hydrocodone Bitart ([place] (5/325)) 1 tab Q6H PRN PO .MOD PAIN 4- 6; Start 09/26/18 at 21:30; Status UNV Vancomycin HCl (Vanco Iv Per Pharmacy) VANCOMYCIN PER PHARMACY PER PROTOCOL XX ; Start 09/26/18 at 21:30; Status UNV Ceftriaxone Sodium 50 ml @ 100 mls/hr DAILY IVPB ; Start 09/27/18 at 09:00; Status UNV Meds reviewed: Yes Allergies Coded Allergies: No Known Allergy (Unverified , 09/22/18) Allergies Reviewed: Yes Labs/Studies Labs Reviewed: Reviewed by anesthesiologist Result Diagram: 09/26/18193209/26/181932 Laboratory Tests 09/26/18 19:33 test: Positive Studies: ECG (sr), CXR (n/a) Pre-procedure Exam Last vitals Vital Signs Date Temp Pulse Resp B/P (MAP) Pulse Ox O2 O2 Flow FiO2 Time Delivery Rate 09/26/18 99.3 103 18 111/55 100 Room Air 20:45 (73) Airway: Adequate mouth opening Mallampati: Mallampati I Teeth: Normal Lung: Normal Heart: Normal ASA Physical Status ASA physical status: 2 Emergency: E Planned Anesthetic General/MAC: LMA Planned Pain Management Parenteral pain med Pre-operative Attestations Prior to commencing anesthesia and surgery, the patient was re-evaluated, there was verification of: *The patient's identity *The results of appropriate recent lab work and preoperative vital signs *The above evaluation not changing prior to induction *Anesthetic plan, risk benefits, alternative and complications discussed with patient/family; questions answered; patient/family understands, accepts and wishes to proceed. SHAWN BOWMAN MD Sep 26, 2018 22:22
[2018-09-26] MEDS ORDERED: MIDAZOLAM 1 MG/ML 2 ML INJ ONE (22:24)
[2018-09-26] MEDS ORDERED: METOCLOPRAMIDE 10 MG INJ ONE (22:26)
[2018-09-26] MEDS ORDERED: KETOROLAC 30 MG INJ ONE (22:26)
[2018-09-26] MEDS ORDERED: CEFAZOLIN 1 GM INJ ONE (22:26)
[2018-09-26] MEDS ORDERED: ONDANSETRON 4 MG INJ ONE (22:26)
[2018-09-26] MEDS ORDERED: PROPOFOL 20 ML ONE (22:26)
[2018-09-26] MEDS ORDERED: MEPERIDINE 25 MG INJ IV PRN (22:30)
[2018-09-26] MEDS ORDERED: DIPHENHYDRAMINE 50 MG INJ IV PRN (22:30)
[2018-09-26] MEDS ORDERED: FENTAnyl 50 MCG/ML VIAL IV PRN ×3 (22:30)
[2018-09-26] MEDS ORDERED: HYDROmorphONE 1 MG/5 ML IV SYRINGE IV PRN ×3 (22:30)
[2018-09-26] MEDS ORDERED: FENTAnyl 50 MCG/ML VIAL ONE (22:36)
--- NOTE | 2018-09-26 23:33 | PAC ---
Date/Time of Note Date/Time of Note DATE: 09/26/18 TIME: 23:33 Post-Anesthesia Notes Post-Anesthesia Note Last documented vital signs Vital Signs Date Temp Pulse Resp B/P (MAP) Pulse Ox O2 O2 Flow FiO2 Time Delivery Rate 09/26/18 98.7 97 18 91/34 (53) 100 Mask 6.0 23:05 09/26/18 98.6 23:02 09/26/18 100 20:45 Activity: WNL Respiratory function: WNL Cardiovascular function: WNL Mental status: Baseline Pain reasonably controlled: Yes Hydration appropriate: Yes Nausea/Vomiting absent: No SHAWN BOWMAN MD Sep 26, 2018 23:33
[2018-09-27] VITALS: BP 105/51; PULSE 91; RESP 16
[2018-09-27] MEDS ORDERED: VANCOMYCIN 1 GM 250 ML IVPB ONE
[2018-09-27 00:44] VITALS: Ht 162.6 cm; Wt 58.2 kg
[2018-09-27] MEDS: DEXTROSE 5%-0.45% NACL 1,000 ML IV SCH ×3 (01:23→13:48)
[2018-09-27 01:51] VITALS: BP 96/52; PULSE 92; RESP 18
--- NOTE | 2018-09-27 03:19 | OPR ---
DATE OF OPERATION: 09/26/2018 PREOPERATIVE DIAGNOSIS: Incomplete . POSTOPERATIVE DIAGNOSIS: Incomplete . See pathological report. OPERATION PERFORMED: Suction curettage. ANESTHESIA: General. ANESTHESIOLOGIST: Vianey Lara MD SURGEON: Komal Boyce MD ESTIMATED BLOOD LOSS: Less than between 10 to 20s. DESCRIPTION OF PROCEDURE: Under proper induction of general anesthesia, the patient was placed in do rsal lithotomy position. Perineal area and vagina wall was prepped and draped in usual aseptic bibi r. On inspection, external genitalia revealed no gross abnormality. Bimanual examination, cervix op en to fingertip and uterus approximately 8 to 9 weeks of gestational size, relatively soft. There wa s no palpable adnexal pathology. Weighted speculum introduced, cervix identified which was parous an d open, and anterior lip of the cervix was grasped with single-tooth tenaculum and cavity was sounded which was approximately 9 cm in depth and the os was patent to size of 8 Hegar dilator and a size 7 suction curette was introduced. Intrauterine cavity was suctioned by obtaining of a small amount of tissue followed by sharp curettage and followed by suction again. The entire cavity was cleaned. No bleeding noted. All instruments were removed from the operative field and patient withstood the pro cedure and was sent to the recovery room in stable condition. Dictated By: KOMAL BERGERON/RADHA Conf#: [id number] DID#: [id number]
[2018-09-27 07:35] VITALS: BP 99/53; PULSE 103; RESP 16
[2018-09-27] MEDS: VANCOMYCIN 750 MG (PMX) 250 ML IVPB SCH ×2 (08:15→16:00)
[2018-09-27] MEDS ORDERED: CEFTRIAXONE 1 GM/50 ML (PMX) 50 ML IVPB SCH (09:00)
[2018-09-27 14:20] VITALS: BP 119/63; PULSE 75; RESP 18
[2018-09-27] MEDS ORDERED: NITR-58 PO (14:40)
--- NOTE | 2018-09-27 14:45 | DS ---
Date/Time of Note Date/Time of Note DATE: 09/27/18 TIME: 14:44 Discharge Summary Admission/Discharge Info Admit Date/Time Sep 26, 2018 at 21:56 Discharge Date/Time Discharge Diagnosis 33-year-old female who presented after spontaneous 3 days prior with fever and abdominal pain 1. Sepsis and abdominal pain secondary to #2 2. Incomplete status post intraoperative suction curettage 3. Urinary tract infection . Patient Condition: Stable Hospital Course 33-year-old female who had presented to the emergency room with fever after a history of a miscarriage 3 days ago. Miscarriage was said to be spontaneous and she was found to be sepsis with tachycardia and fever. A pelvic ultrasound was done in the emergency room that showed versus residual hematoma and a heterogeneous and thickened endometrium with concern for mild retained products of conception. Patient was admitted and started on IV antibiotics and obstetric consultation was obtained. Dr. Boyce took the patient to the operating room for incomplete and performed a suction curettage. I reviewed the patient postoperatively at about 11 AM September 27, 2018. At that time the patient is having no more pain she has had no fever since admission she is requesting to be discharged home. I spoke with the central supply tech who concurs with discharge and r ecommend treatment only for urinary tract infection with Macrobid for 5 days. She does not recommend any antibiotics for endometritis. Patient has been evaluated in detail by myself and is stable for discharge and has been cleared by OB. . Home Meds Discontinued Reported Medications [none] Unknown Strength No Conflict Check 06/08/15 Discontinued Scripts Naproxen* (Naprosyn*) 500 Mg Tablet, 500 MG PO BID PRN for PAIN AND/OR INFLAMMATION, #30 TAB Prov:PERCY SPENCE PA-C 01/14/17 Ibuprofen* (Motrin*) 600 Mg Tab, 600 MG PO Q6, #30 TAB Prov:ANIBAL ANAYA 10/05/15 Cephalexin* (Cephalexin*) 500 Mg Capsule, 500 MG PO Q6 for 7 Days, CAP Prov:NAYLA BROWN NP 06/08/15 Acetaminophen* (Tylophen*) 500 Mg Capsule, 1 CAP PO Q6H PRN for PAIN AND OR ELEVATED TEMP, #20 CAP Prov:NAYLA BROWN NP 06/08/15 Follow-up Plan Patient is recommended to follow-up as needed with PCP and outpatient central supply tech. . Primary Care Provider Chantel Trejo Time spent on discharge: > 30 minutes Pending Labs Laboratory Tests Test 09/26/18 19:33 09/26/18 19:45 09/26/18 21:07 09/27/18 00:21 White Blood 5.4 Count 10^3/ul (4.8-10 .8) Red Blood 3.75 Count 10^6/ul (4.20-5 .40) Hemoglobin 12.1 g/dl (12.0-16.0 ) Hematocrit 35.8 % (37.0-47.0) Mean 95.5 Corpuscular fl (82.0-101.0) Volume Mean 32.3 Corpuscular pg (29.0-33.0) Hemoglobin Mean 33.8 Corpuscular g/dl (32.0-37.0 Hemoglobin Conc ) ent Red Cell 11.8 Distribution % (11.5-14.5) Width Platelet Count 172 10^3/UL (140-41 5) Mean Platelet 10.7 Volume fl (7.4-10.4) Immature 0.400 Granulocytes % % (0.001-0.429) Neutrophils % 88.6 % (39.0-77.0) Lymphocytes % 6.5 % (15.0-51.0) Monocytes % 4.1 % (0.0-11.0) Eosinophils % 0.0 % (0.0-7.0) Basophils % 0.4 % (0.0-2.0) Nucleated Red 0.0 Blood Cells % /100WBC (0.0-0. 0) Immature 0.020 Granulocytes # 10^3/ul (0.0-0. 031) Neutrophils # 4.8 10^3/ul (1.6-7. 5) Lymphocytes # 0.4 10^3/ul (0.8-2. 9) Monocytes # 0.2 10^3/ul (0.3-0. 9) Eosinophils # 0.0 10^3/ul (0.0-0. 5) Basophils # 0.0 10^3/ul (0.0-0. 1) Nucleated Red 0.0 Blood Cells # 10^3/ul (0.0-0. 0) Prothrombin 13.0 Time Sec (11.9-14.9) Prothrombin 1.0 Time Ratio INR 0.97 International Normalized Rati o Activated 28.5 Partial Thrombo Sec (23.0-35.0) plast Time Sodium Level 139 mmol/L (135-144 ) Potassium 3.6 Level mmol/L (3.5-5.1 ) Chloride Level 104 mmol/L (97-110) Carbon Dioxide 23 Level mmol/L (21-31) Anion Gap 12 (5-13) Blood Urea 6 mg/dl (7-20) Nitrogen Creatinine 0.53 mg/dl (0.44-1.0 0) Est Glomerular > 60 Filtrat mL/min (>60) Rate mL/min Glucose Level 114 mg/dl (70-220) Lactic Acid 1.4 0.9 1.3 Level mmol/L (0.5-2.0 mmol/L (0.5-2. mmol/L (0.5-2. ) 0) 0) Calcium Level 9.6 mg/dl (8.4-10.2 ) Total 0.6 Bilirubin mg/dl (0.2-1.3) Direct 0.00 Bilirubin mg/dl (0.00-0.2 0) Indirect 0.6 Bilirubin mg/dl (0-1.1) Aspartate Amino 19 IU/L (15-46) Transf (AST/SGO T) Alanine 19 IU/L (13-69) Aminotransferas e (ALT/SGPT) Alkaline 52 Phosphatase IU/L (42-121) Troponin I < 0.012 ng/ml (0.000-0. 120) Total Protein 7.5 g/dl (6.1-8.1) Albumin 4.4 g/dl (3.3-4.9) Globulin 3.10 g/dl (1.3-3.2) Albumin/Globuli 1.41 n Ratio Urine Color YELLOW (YELLOW ) Urine Clarity CLOUDY (CLEAR) Urine pH 8.0 (5.0-9.0) Urine Specific 1.018 (1.003-1 Brea .030) Urine Ketones TRACE mg/dL (NEGATIV E) Urine Nitrite NEGATIVE mg/dL (NEGATIV E) Urine NEGATIVE Bilirubin mg/dL (NEGATIV E) Urine 2+ Urobilinogen mg/dL (NEGATIV E) Urine Leukocyte TRACE Esterase William/ul (NEGATI VE) Urine > 182 Microscopic /HPF (0-5) RBC Urine 27 /HPF (0-5) Microscopic WBC Urine Squamous FEW /HPF (FEW) Epithelial Cell s Urine Mucus FEW /HPF (NONE SEEN) Urine 3+ Hemoglobin mg/dL (NEGATIV E) Urine Glucose NEGATIVE mg/dL (NEGATIV E) Urine Total NEGATIVE Protein mg/dl (NEGATIV E) Urine POSITIVE (NEGA Test TIVE) Test 09/27/18 06:39 White Blood 3.7 Count 10^3/ul (4.8-10 .8) Red Blood 3.32 Count 10^6/ul (4.20-5 .40) Hemoglobin 10.8 g/dl (12.0-16.0 ) Hematocrit 32.2 % (37.0-47.0) Mean 97.0 Corpuscular fl (82.0-101.0) Volume Mean 32.5 Corpuscular pg (29.0-33.0) Hemoglobin Mean 33.5 Corpuscular g/dl (32.0-37.0 Hemoglobin Conc ) ent Red Cell 11.6 Distribution % (11.5-14.5) Width Platelet Count 147 10^3/UL (140-41 5) Mean Platelet 11.1 Volume fl (7.4-10.4) Immature 0.800 Granulocytes % % (0.001-0.429) Neutrophils % 84.4 % (39.0-77.0) Lymphocytes % 7.9 % (15.0-51.0) Monocytes % 6.6 % (0.0-11.0) Eosinophils % 0.0 % (0.0-7.0) Basophils % 0.3 % (0.0-2.0) Nucleated Red 0.0 Blood Cells % /100WBC (0.0-0. 0) Immature 0.030 Granulocytes # 10^3/ul (0.0-0. 031) Neutrophils # 3.1 10^3/ul (1.6-7. 5) Lymphocytes # 0.3 10^3/ul (0.8-2. 9) Monocytes # 0.2 10^3/ul (0.3-0. 9) Eosinophils # 0.0 10^3/ul (0.0-0. 5) Basophils # 0.0 10^3/ul (0.0-0. 1) Nucleated Red 0.0 Blood Cells # 10^3/ul (0.0-0. 0) Sodium Level 138 mmol/L (135-144 ) Potassium 3.5 Level mmol/L (3.5-5.1 ) Chloride Level 103 mmol/L (97-110) Carbon Dioxide 21 Level mmol/L (21-31) Anion Gap 14 (5-13) Blood Urea 5 mg/dl (7-20) Nitrogen Creatinine 0.41 mg/dl (0.44-1.0 0) Est Glomerular > 60 Filtrat mL/min (>60) Rate mL/min Glucose Level 150 mg/dl (70-220) Calcium Level 8.5 mg/dl (8.4-10.2 ) Phosphorus 1.9 Level mg/dl (2.5-4.9) Magnesium 1.6 Level mg/dl (1.7-2.5) Total 0.4 Bilirubin mg/dl (0.2-1.3) Direct 0.00 Bilirubin mg/dl (0.00-0.2 0) Indirect 0.4 Bilirubin mg/dl (0-1.1) Aspartate Amino 21 IU/L (15-46) Transf (AST/SGO T) Alanine 18 IU/L (13-69) Aminotransferas e (ALT/SGPT) Alkaline 32 Phosphatase IU/L (42-121) Total Protein 5.7 g/dl (6.1-8.1) Albumin 3.3 g/dl (3.3-4.9) Globulin 2.40 g/dl (1.3-3.2) Albumin/Globuli 1.37 n Ratio Microbiology Date/Time Source Procedure Growth Status 09/26/18 19:45 Catheter Urine Urine Culture - Preliminary NO GROWTH Resulted AFTER 24 HOURS 09/26/18 19:40 Nasopharyngeal Influenza Types A,B Direct EIA - Final Complete ANT CALDWELL Sep 27, 2018 14:45
[2018-09-27] MEDS ORDERED: MAGNESIUM SULFATE 2 GM/50 ML 50 ML IVPB ONE (15:00)
[2018-09-27] MEDS ORDERED: POTASSIUM PHOSPHATE 15 MM in SOD CHLORIDE 0.9% 250 ML IVPB ONE (15:00)
[2018-09-27 20:19] VITALS: BP 117/58; PULSE 87; RESP 18
== END 2018-09-27 22:43 | disposition home or self-care (01) | DRG 770 ==
LOC: E/R 18:35 → REC 21:56 → PP2 22:40
PROVIDERS: ADMIT Internal Medicine; ATTEND Family Medicine
PROC: 10D17ZZ Extraction of Products of Conception, Retained, Via Natural or Artificial Opening (ICD-10-PCS; principal; 2018-09-26 22:30)
DX: O03.37 Sepsis following incomplete spontaneous abortion (principal); A41.9 Sepsis, unspecified organism; B95.4 Other streptococcus as the cause of diseases classified elsewhere
CPT/HCPCS: 36415; 71045; 76856; 80053; 81001; 83605; 83735; 84100; 84484; 84703; 85025; 85610; 85730; 87040; 87086; 87400; 88305; 93005; 96365; J0690; J0696; J1885; J2250; J2405; J2765; J3010; J3370; J3475; J7030; J7042; J7050